=== PATIENT | female | born 1965 | race Caucasian/White ===

== ENCOUNTER → 2018-03-26 | Outpatient (CLI) | payer OTHER ==
[~2018-03-26] MED LIST: AMBIEN 5 MG TABL5 M1 PO; AMITRIPTYLINE H25 M2 PO; ESTRADIOL 1 MG T1 M1 PO; FLEXERIL PO
--- NOTE | 2018-04-15 13:50 | PAINCON ---
[address] [address] PAIN MANAGEMENT CONSULTATION Name: CARROLL STEVENS Jamee Room: [facility] Emelyn#: [id number] Admission: 03/26/18 Attend Phys: Jennifer Ross MD Discharge: Date of : 63 Report #: [id number] THIS REPORT FOR: //name// CC: Jennifer Irene DO DATE OF SERVICE: 03/26/2018 CHIEF COMPLAINT: "Pain is going down my arm and hurts all the time." BRIEF HISTORY OF PRESENT ILLNESS: The patient is a 52-year-old female. She has been experiencing pain that has worsened over the past few weeks. Denies any antecedent trauma. She is experiencing some mild tingling down to her arm and forearm with some weakness. She states that she has tried chiropractic treatment without significant improvement. She has tried czwp-uwf-iqdlyug medications such as Aleve. She is also use a Medrol Dosepak. There was a history of fall and concussion. She states that she has had neck pain that was problematic at that time, used to be on the right side now; the left side is that which is most problematic. She describes her discomfort now is continuous, steady, constant, shooting, aching. Rates it as 7/10. She has tried chiropractic treatment with cervical traction. She noted some improvement with that. ALLERGIES: PENICILLIN. MEDICATIONS: Zolpidem 5 mg, estradiol 1 mg and cyclobenzaprine 10 mg. PAST MEDICAL HISTORY: Restless legs syndrome, insomnia, vitamin D deficiency, and joint disease/arthritis. PAST SURGICAL HISTORY: Tonsillectomy in 1968, hysterectomy in 2013, cholecystectomy in 1999. 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 REVIEW OF SYSTEMS: Questionnaire in the chart indicates generally good health, fatigue, weakness, and headaches. A 12-point review of systems, numbness and tingling sensation involving the left arm. LABORATORY DATA: MRI of the cervical spine dated 01/28/2018 reveals; 1. Minor disk osteophyte complex at C3-C4. No significant spinal canal stenosis [place] [address] PAIN MANAGEMENT CONSULTATION Name: RODNEYCARROLL L Room: [facility]#: [id number] Admission: 03/26/18 Attend Phys: Jennifer Ross MD Discharge: Date of : 63 Report #: [id number] 2. C4/C5, minor disk osteophyte complex. 3. C5/C6 disk osteophyte complex, left greater than right uncovertebral joint hypertrophy. Mild facet hypertrophy. Mild spinal canal stenosis. Moderate left greater than right neural foraminal narrowing. 4. C6/C7 disk osteophyte complex; left greater than right uncovertebral joint hypertrophy. Mild facet hypertrophy. Mild spinal canal stenosis. Moderate right and severe left neural foraminal narrowing. 5. C7-T1, no significant disk bulge, spinal canal stenosis or neural foraminal narrowing. X-ray of the cervical spine dated 01/20/2018 reveals five views of the cervical spine. There is reversal of the cervical lordosis. The vertebral body heights are well maintained. There is no significant anterolisthesis. Multilevel marginal osteophyte formation and disk space narrowing, most pronounced at C5-C6 and C6-C7. Multilevel facet arthrosis and uncinate hypertrophy. There also appears to be off. She has formal foraminal narrowing bilaterally at the C5/C6 and C6-C7, although findings may be accentuated by the patient's positioning and technique. The lateral mass alignment is normal, visualize on the odontoid appears within normal limits. Prevertebral soft tissues are within normal limits. PAIN CLINIC ASSESSMENT: 1. The patient states that she has had some arthritic changes in her neck for some years. 2. Height 5 feet 4 inches, weight 184 pounds, BMI is 31.7. 3. Vital signs: Blood pressure is 108/24, heart rate 85, respiratory rate 16, room air saturation 97%, temperature 98.5. 4. Pain intensity 7/10. 5. Fall risk. The patient has not fallen in the last 3 months. 6. The patient on a blood thinner. The patient is not on a blood thinning agent. 7. History of hypertension. The patient is not being treated for hypertension. 8. Opioid therapy greater than 6 weeks. The patient is not on an opioid therapy. 9. Risk assessment tool, low for opioids. 10. Functional assessment tool. Pain impact score 30/70 indicating mild effect of pain on activities of daily living. 11. Recreational drug use. The patient denies use of recreational drugs. 12. Tobacco: The patient denies use of tobacco. 13. Alcohol use. The patient denies use of alcoholic beverages. PHYSICAL EXAMINATION: GENERAL: The patient is a well-developed white female, appears her stated age. She is alert and oriented x 3. Speech is fluent. HEENT: Normocephalic, atraumatic. Extraocular eye muscles intact. Sclerae nonicteric. Hearing within normal limits. Mucous membranes are moist. [address] [id number] PAIN MANAGEMENT CONSULTATION Name: CARROLL STEVENS Room: [facility]#: [id number] Admission: 03/26/18 Attend Phys: Jennifer Ross MD Discharge: Date of : 63 Report #: [id number] NECK: Without adenopathy or bruits. HEART: Regular rate. S1, S2. LUNGS: Clear to auscultation without rales or rhonchi. ABDOMEN: Nontender. MUSCULOSKELETAL: Without significant scoliosis, kyphosis or lordosis. Upper extremity muscle strength is judged to be 5/5 on the right without sensory changes. The patient notes decreased sensation to pinprick with pins and needles sensation in the dorsum of her left hand and forearm. Has pins and needle sensation in the left shoulder area. Pain and discomfort in the left scapular area. Deep tendon reflexes plus trace to +1 on the right/trace on the left. Lower extremity muscle strength is judged to be 5/5 in the lower extremities since without sensory changes. Deep tendon reflexes are trace at the knees. Grzegorz's sign is negative. Anterior and posterior spring tests are negative. The patient is able to stand, stand on her toes and heels. IMPRESSION: 1. Cervical radiculopathy involving the left upper extremity. 2. Insomnia. 3. Restless legs syndrome. RECOMMENDATIONS: We discussed treatment options with the patient. Risks and benefits of a cervical epidural steroid injection were discussed. Possible complications of the procedure were reviewed. They include but are not limited to infection, increased muscle soreness, headache, bleeding, worsening of pain, paralysis. The patient will return to the pain clinic. After she has been pre-certified by her insurance company will then proceed with a cervical epidural steroid injection to help decrease the pain and discomfort, which she is experiencing. She will call us if she notes any problems with the amitriptyline. She will try amitriptyline. This medication use for pain at low doses can oftentimes be helpful with the nerve pain and discomfort, which is often the time associated with nerve root irritation. Hopefully, this will help the patient get a better night sleep as well. We would like to thank you for letting us participate in her care. We hope she continues to improve. <ELECTRONICALLY SIGNED> By: Jennifer Ross MD 04/15/18 1350 1624 0123N. Yaniv Ross MD /nt
== END ==
LOC: M.PC 04:35
DX: M54.12 Radiculopathy, cervical region (principal); G47.00 Insomnia, unspecified; G25.81 Restless legs syndrome

== ENCOUNTER → 2018-04-02 | Outpatient (CLI) | payer OTHER ==
--- NOTE | 2018-04-15 14:05 | PAINCON ---
[address] [address] PAIN MANAGEMENT CONSULTATION Name: ANA STEVENSNan Mancuso [id number] Admission: 04/02/18 Attend Phys: Jennifer Ross MD Discharge: Date of : 63 Report #: [id number] THIS REPORT FOR: //name// CC: Jennifer Irene DO DATE OF SERVICE: 04/02/2018 CHIEF COMPLAINT: Cervical neck pain, I have returned for an injection. FOLLOWUP HISTORY: The patient is a 52-year-old female who has been seen in the pain clinic. As you recall, she has had worsening pain over the past few weeks. Denies any antecedent trauma. She has been experiencing pain and discomfort, which is characterized as pain radiating down into her forearm with weakness. She has tried chiropractic treatment without significant senior care improvement. She has tried ogsw-bfr-yrmtajb medications such as nonsteroidal anti-inflammatory medications and uses Aleve. She has also used a Medrol Dosepak. Pain has been on both sides of her neck. Right side was problematic as well as some problems on the left side. Pain is continuous, steady, constant, shooting, and aching. It is a 7/10. She has returned to the pain clinic for treatment. ALLERGIES: PENICILLIN. CURRENT MEDICATIONS: Zolpidem 5 mg, Estradiol 1 mg, cyclobenzaprine 10 mg, amitriptyline 25 mg. PAIN CLINIC ASSESSMENT: 1. The patient does have some arthritic changes in her neck. 2. Height 5 feet 4 inches, weight 185 pounds, BMI is 39. 3. Vital signs: Blood pressure 133/81, heart rate 81, respiratory rate 16, room air saturation 97%, temperature 98.4. 4. Pain score 3/10. 5. Fall risk. The patient has not fallen in the last 3 months. 6. Blood thinner. The patient is not on a blood thinning agent. 7. History of hypertension. The patient is not being treated for hypertension. 8. Opioid therapy greater than 6 weeks. The patient is not on an opioid therapy. 9. Risk assessment tool, low for opioids. 10. Functional assessment tool rated at 30/70 indicating moderate problems with pain with activities of daily living. 11. Tobacco: The patient denies use of tobacco. 12. Alcohol: The patient denies use of alcoholic beverages. PHYSICAL EXAMINATION: [place] [address] PAIN MANAGEMENT CONSULTATION Name: CARROLL STEVENS Jamee Room: [facility]#: [id number] Admission: 04/02/18 Attend Phys: Jennifer Ross MD Discharge: Date of : 63 Report #: [id number] GENERAL: The patient is a well-developed white female. She appears her stated age. She has fluent speech. HEENT: Normocephalic, atraumatic. Extraocular eye muscles intact. Mucous membranes are moist. Sclerae nonicteric. NECK: Without adenopathy or bruits, some increased pain in the shoulder areas with extension, flexion, left and right lateral bending. HEART: Regular rate. S1, S2. LUNGS: Clear to auscultation without rales or rhonchi. ABDOMEN: Nontender, without organomegaly. MUSCULOSKELETAL: Without significant scoliosis, kyphosis, or lordosis. EXTREMITIES: Upper extremity muscle strength is judged to be 5/5 on the right without sensory changes. The patient notes some decreased sensation to pinprick on the dorsum of her left arm and forearm. Has some pins and needle sensation in the left shoulder area in the area of scapula. Deep tendon reflexes are trace to +1 on the right, trace on the left. Lower extremity muscle strength is judged to be 5/5 in the major muscle groups without sensory changes. Deep tendon reflexes are trace at the knees. Grzegorz sign is negative. Anterior and posterior spring tests are negative. The patient is able to stand on her toes and heels. IMPRESSION: 1. Cervical radiculopathy involving the left upper extremity, which is most problematic today. 2. Insomnia. 3. Restless legs syndrome. RECOMMENDATIONS: We discussed treatment options with the patient. Risks and benefits of an epidural steroid injection were again reviewed. Possible complication of the procedure, which could include but are not limited to infection, increased muscle soreness, headache, bleeding, paralysis, worsening of pain, no improvement in pain were discussed. The patient elects to proceed. She feels that the amitriptyline 25 mg at bedtime has been helpful in decreasing some of her pain as well as improving her ability to rest in conjunction with her other medications of Ambien. She would like to proceed with that injection. Her agrees as well. PROCEDURE NOTE: The patient was taken to the procedure area. She was helped on to the examination table. She was placed in the prone position. Her back was sterilely prepped in the neck area. Betadine was allowed to dry. Fluoroscopy using anterior, posterior as well as lateral viewing was used to help positioned the needle. Her neck was infiltrated at the C7-T1 interspace. A 17-gauge Tuohy with loss of resistance technique was used to gain access to the epidural space. There was no CSF, heme or paresthesia. Total of 120 mg triamcinolone was injected. The patient tolerated the procedure well. There were no complications. Total fluoroscopy time was 15 seconds. [place] [address] PAIN MANAGEMENT CONSULTATION Name: CARROLL STEVENS Room: [facility]#: [id number] Admission: 04/02/18 Attend Phys: Jennifer Ross MD Discharge: Date of : 63 Report #: [id number] the future as needed. We would like to thank you for letting us participate in her care. We hope she continues to improve. <ELECTRONICALLY SIGNED> By: Jennifer Ross MD 04/15/18 1405 1548 2102N. Yaniv Ross MD /PMT
== END | disposition home or self-care (01) ==
LOC: M.PC 00:53
DX: M54.12 Radiculopathy, cervical region (principal); G89.29 Other chronic pain; G47.00 Insomnia, unspecified; G25.81 Restless legs syndrome; Z88.0 Allergy status to penicillin; Z79.899 Other long term (current) drug therapy

== ENCOUNTER → 2018-05-05 | Outpatient (CLI) | payer OTHER ==
--- NOTE | 2018-06-03 14:16 | PAINCON ---
[facility] [address] [place] [address] PAIN MANAGEMENT CONSULTATION Name: CARROLL STEVENS [id number] Admission: 05/05/18 Attend Phys: Jennifer Ross MD Discharge: Date of : 63 Report #: [id number] THIS REPORT FOR: //name// CC: Jennifer Irene DATE OF SERVICE: 05/05/2018 FOLLOWUP COMPLAINT: Pain has improved, but I am still having some discomfort and have returned for another injection. FOLLOWUP HISTORY: The patient is a 52-year-old female who has been seen in the pain clinic because of cervical radiculopathy. She underwent a cervical epidural steroid injection in the past. She received 100% improvement in her pain. She has noted on the 3rd week some return of pain and discomfort. She rates it as a 3/10 at this juncture. Continues to have pain, which she describes as a buzzing sensation in her left arm. Has pain that radiates down into her elbow and involves her thumb on the left. She would like to proceed with another injection at this juncture. She finds that Elavil at bedtime is helpful. This had no complications from the last injection. She continues to use Flexeril to help with the muscle spasms t.i.d. or 3 times a day. ALLERGIES: PENICILLIN. MEDICATIONS: Zolpidem 5 mg, estradiol 1 mg, cyclobenzaprine 10 mg, amitriptyline 25 mg at bedtime. PAIN CLINIC ASSESSMENT: 1. The patient has not been treated for osteoarthritis. She does have some arthritic changes in her neck. 2. Height 5 feet 4 inches, weight 187 pounds, BMI is 32.9. 3. Vital signs: Blood pressure 126/89, heart rate 91, respiratory rate 16, room air saturation 95%, temperature 98.1. 4. Pain score 3/10. 5. Fall risk. The patient has not fallen in the last 3 months. 6. Blood thinner. The patient is not on a blood thinning medication. 7. History of hypertension. The patient is not being treated for hypertension. 8. Opioid therapy greater than 6 weeks. The patient is not on opioid therapy. 9. Risk assessment tool, low for opioid use. 10. Functional assessment tool 30/70 indicating some moderate problems with pain involving activities of daily living. 11. Tobacco: The patient denies use of tobacco. 12. Alcohol: The patient denies use of alcoholic beverages. PHYSICAL EXAMINATION: GENERAL: The patient is a well-developed white female[place] [address] PAIN MANAGEMENT CONSULTATION Name: CARROLL STEVENS Jamee Room: [facility]#: [id number] Admission: 05/05/18 Attend Phys: Jennifer Ross MD Discharge: Date of : 63 Report #: [id number] age. She is alert and oriented. Speech is fluent. HEENT: Normocephalic, atraumatic. Extraocular eye muscles intact. Mucous membranes are moist. Sclerae nonicteric. NECK: Without adenopathy or bruits, but has some increased pain in the shoulder areas with flexion, extension, left and right lateral bending of her neck. HEART: Regular rate. S1, S2. LUNGS: Clear to auscultation without rales or rhonchi. ABDOMEN: Nontender, without organomegaly. MUSCULOSKELETAL: Without significant scoliosis, kyphosis or lordosis. EXTREMITIES: Upper extremity muscle strength is judged to be 5/5 on the right without sensory changes. The patient does note some decreased sensation to pinprick involves the dorsum of her left hand, forearm and some discomfort down into her thumb. She has some soreness in the scapular area on the left. Lower extremity muscle strength is judged to be 5/5 at the major muscle groups without sensory change. Anterior and posterior spring test negative. The patient is able to stand on toes and heels. IMPRESSION: 1. Cervical radiculopathy involving the left upper extremity, which is most problematic today. Improved by 100% after the last injection. 2. Insomnia. 3. Restless legs syndrome. RECOMMENDATIONS: We discussed treatment options with the patient. Risks and benefits of another epidural steroid injection in the cervical area were discussed. The possible complications include but are not limited to an increase pain, bleeding, infection, spinal headache and paralysis. The patient elects to proceed. PROCEDURE NOTE: The patient was placed in the prone position. Fluoroscopy was used to identify the C7-T1 interspace. A pillow was placed under her shoulders to bolster and improve positioning. The patient was prepped with a Betadine solution. Fluoroscopy using anterior, posterior as well as lateral viewing were used to place the needle in the appropriate place. A 0.25% bupivacaine was infiltrated into the paraspinous area on the left. A 17-gauge Tuohy with loss of resistance technique was used to gain access to the epidural space. There was no CSF, heme or paresthesia. Total of 120 mg triamcinolone was injected. The patient tolerated the procedure well. There were no complications. She remained in the pain clinic for an appropriate amount of time. Pain decreased to 2. 26 seconds fluoroscopy time was used. She will call us if she has any problems. [address] [place] [address] PAIN MANAGEMENT CONSULTATION Name: CARROLL STEVENS [facility] [id number] Admission: 05/05/18 Attend Phys: Jennifer Ross MD Discharge: Date of : 63 Report #: [id number] We would like to thank you for letting us participate in her care. We hope she continues to improve. <ELECTRONICALLY SIGNED> By: Jennifer Ross MD 06/03/18 1416 0913 1800N. Yaniv Ross MD /nt
== END | disposition home or self-care (01) ==
LOC: M.PC 05:30
DX: M54.12 Radiculopathy, cervical region (principal); G25.81 Restless legs syndrome; Z68.32 Body mass index [BMI] 32.0-32.9, adult; I10 Essential (primary) hypertension; Z88.0 Allergy status to penicillin; Z79.899 Other long term (current) drug therapy

== ENCOUNTER 2021-04-17 09:26 | Emergency (ER) | payer OTHER ==
[~2021-04-17] VITALS: Ht 162.6 cm; Wt 79.4 kg
[2021-04-17 10:46] LABS: MPV 7.9 fl. (7.2-11.1)
[2021-04-17 10:48] LABS: ABSOLUTE LYMPHOCYTES 1.1 thou/uL (0.8-5.3); ABSOLUTE MONOCYTES 0.4 thou/uL (0.0-1.2); BASOPHILS 0.3 %; EOSINOPHILS 0.5 %; HEMATOCRIT 38.9 % (37.0-47.0); HEMOGLOBIN 13.7 gm/dL (12.0-15.0); LYMPHOCYTES 31.5 %; MCH 29.2 pg (26.0-34.0); MCHC 35.1 g/dL (28.0-37.0); MCV 83.3 fL (80.0-100.0); MONOCYTES 12.2 %; NUCLEATED RBCS 0 /100WBC; PLATELET COUNT* 143 thou/uL (150-400); POLYS 55.5 %; RBC 4.67 mil/uL (4.20-5.00); RDW-CV 14.1 % (10.5-14.5); WBC 3.6 thou/uL (4.0-11.0)
[2021-04-17 10:54] LABS: CALCIUM 8.5 mg/dL (8.5-10.1); CREATININE 0.8 mg/dL (0.6-1.3); POTASSIUM 3.5 mmol/L (3.5-5.1)
[2021-04-17 11:04] LABS: ALBUMIN 3.6 g/dL (3.4-5.0); TOTAL BILIRUBIN 0.5 mg/dL (<0.1-1.0); TOTAL PROTEIN 7.3 g/dL (6.4-8.2)
[2021-04-17 11:54] LABS: URINE BILIRUBIN NEGATIVE (Negative); URINE BLOOD NEGATIVE (Negative); URINE CLARITY CLEAR; URINE COLOR YELLOW; URINE GLUCOSE-RANDOM NEGATIVE (Negative); URINE KETONES NEGATIVE (Negative); URINE LEUKOCYTES-REFLEX NEGATIVE (Negative); URINE NITRITE-REFLEX NEGATIVE (Negative); URINE PROTEIN NEGATIVE (Negative); URINE SPECIFIC GRAVITY 1.015 (1.005-1.030); URINE UROBILINOGEN 0.2 E.U./dl (0.2-1.0)
[2021-04-17] MEDS ORDERED: LEVAQUIN 500 M500 MG PO (12:16)
[2021-04-17 12:26] VITALS: BP 132/62
--- NOTE | 2021-04-17 15:30 | EKG ---
[place] [address] ELECTROCARDIOGRAM REPORT Name: CARROLL STEVENS Room: [facility]#: [id number] Admission: 04/17/21 Attend Phys: Discharge: 04/17/21 Date of : 63 Date of Service: 04/17/21 1045 Report #: [id number] THIS REPORT FOR: //name// [facility] ED Test Date: 2021-04-17 Test Time: 10:45:33 Pat Name: CARROLL STEVENS Department: Room: Gender: Proration Clerk: BELLA : 1965 Requested By: Pro Baez Order Number: [id number] MD: Cristian Barfield Measurements Intervals [place] Rate: 63 P: 31 OR: 155 QRS: 33 QRSD: 101 T: 14 QT: 401 QTc: 414 Interpretive Statements Sinus rhythm Nonspecific ST segment depression No previous ECG available for comparison Electronically Signed On 04-17-2021 15:30:38 CDT by Cristian Barfield [email or web address] <ELECTRONICALLY SIGNED> By: Cristian Barfield MD, [facility] 04/17/21 1530 1045 1045 Cristian Barfield MD, FACC /EPI
== END 2021-04-17 12:25 | disposition home or self-care (01) ==
LOC: M.ERS 09:26
PROVIDERS: Family Medicine
DX: J18.9 Pneumonia, unspecified organism (principal); Z20.822 Contact with and (suspected) exposure to COVID-19; B34.9 Viral infection, unspecified; Z90.49 Acquired absence of other specified parts of digestive tract; Z90.710 Acquired absence of both cervix and uterus; Z88.5 Allergy status to narcotic agent; Z88.0 Allergy status to penicillin